=== PATIENT | male | born 1960 | race Caucasian/White ===

== ENCOUNTER 2016-10-27 02:21 | Inpatient (IN) | payer OTHER ==
[~2016-10-27] VITALS: Ht 172.7 cm; Wt 90.7 kg
[2016-10-27] MEDS ORDERED: DILAUDID2 M1 PO (08:26)
[2016-10-27] MEDS ORDERED: ASPIRIN EC325 M2 PO (08:26)
[2016-10-27] MEDS ORDERED: PRILOSEC OTC20 M1 PO (08:26)
[2016-10-27] MEDS ORDERED: MIRALAX17 G1 PO (08:26)
[2016-10-27] MEDS ORDERED: MS CONTIN30 M1 PO (08:26)
[2016-10-27] MEDS ORDERED: COLACE100 M1 PO (08:26)
--- NOTE | 2016-10-27 08:35 | Patient Discharge Instructions ---
Discharge Instructions General Discharge Information You were seen/treated for: Left hip pain related to osteoarthritis You had these procedures: Left total hip replacement Watch for these problems: Increasing pain desipite the use of pain medication. Increasing redness, warmth, swelling. Drainage of any type from incision. Inability to bear weight on left leg. Persistent nausea and vomitting. Fever greater than 101.5 degrees. Do not soak the wound: Yes No bath, but you may shower: Yes Other wound care: Keep wound clean and dry. No ointments of any type on or near incsion at any time. No exceptions. Dressing will be changed by nursing on the second day following your surgery. Daily dry dressing changes are recommended thereafter. Special Instructions: Anticoagulation: You are taking aspirin 325 twice daily to help you prevent the development of a blood clot. Please take this as directed. For protection of your stomach, be sure to take this with food. Prilosec has been given to you to further help protect your stomach, please take as directed. Constipation: Pain medications can be very constipating. Be sure to take colace and miralax as directed daily. These medications are available over the counter if needed. You may discontinue these medications if you develop loose stool or diarrhea. If you are unable to move your bowels for several days, or if at any time you are unable to pass gas, please contact your dr. Diet Continue normal diet: Yes Recommended Diet: Regular Additional DIET Information: Advance as tolerated Activity Full Activity/No Limits: No Activity Self Limited: Yes Pounds, do NOT lift more than: 10 Activity Limited to: Weight bear as tolerated Acute Coronary Syndrome Inclusion Criteria At GA or during hospital stay patient has or had the following: ACS DIAGNOSIS No Discharge Core Measures Meds if any: Prescribed or Continued at Discharge Meds if any: NOT Prescribed or Continued at Discharge Congestive Heart Failure Inclusion Criteria At DC or during hospital stay patient has or had the following: CHF DIAGNOSIS No Discharge Core Measures Meds if any: Prescribed or Continued at Discharge Meds if any: NOT Prescribed or Continued at Discharge Cerebrovascular accident Inclusion Criteria At DC or during hospital stay patient has or had the following: CVA/TIA Diagnosis No Discharge Core Measures Meds if any: Prescribed or Continued at Discharge Meds if any: NOT Prescribed or Continued at Discharge Venous thromboembolism Inclusion Criteria VTE Diagnosis No VTE Type NONE VTE Confirmed by (Test) NONE Discharge Core Measures - Per Current guidelines, there needs to be overlap - treatment for the first 5 days of Warfarin therapy. - If discharged on Warfarin prior to 5 days of - overlap therapy, the patient will need to be - assessed for post discharge needs including - *Post discharge parental anticoagulation - *Warfarin and/or parental anticoagulation education - *Follow up date to check INR post discharge At least 5 days overlap therapy as Inpatient No Meds if any: Prescribed or Continued at Discharge Note: Overlap Therapy is Warfarin and Anticoagulant Meds if any: NOT Prescribed or Continued at Discharge
--- NOTE | 2016-10-27 08:36 | Admission Core Measures ---
Admission Meds I reviewed the following Meds: Current Medications Sig/Dany Start time Last Medication Dose Stop Time Status Admin Acetaminophen 975 MG ONCE 10/27 NR (Tylenol) 10/27 2358 Cefazolin Sodium 2,000 MG ONCE 10/27 NR (Kefzol-Ancef Inj) 10/27 2358 Oxycodone HCl 10 MG ONCE 10/27 NR (Roxicodone) 10/27 2358 Acute Coronary Syndrome Inclusion Criteria ACS Diagnosis No Inpatient Core Measures LDL Reminder: If No, please order W/I first 24hr of stay Congestive Heart Failure Inclusion Criteria CHF Diagnosis No Cerebrovascular accident Inclusion Criteria CVA/TIA Diagnosis No Inpatient Core Measures Bedside Swallow Eval Reminder: If BSE failed, place ST order Antithrombotic Reminder: Order Antithrombotic Medication by end of day 2 Antithrombotic Reminder: Document Reason Antithrombotic Not ordered by end of day 2 AFIB/Flutter Reminder: If Present, add to problem list AFIB/Flutter Reminder: Order Anticoag Medication for pts with AFIB/Flutter Atherosclerosis Reminder: If Present, add to problem list LDL Reminder: If No, please order W/I first 24hr of stay PT Order Reminder: If No, please order Venous thromboembolism Inpatient Core Measures VTE Risk Factors: Age > 40, Surgery No [facility] VTE prophylaxis d/t No contraindications No VTE Pharm Prophylaxis d/t No contraindications Inclusion Criteria - Per Current guidelines, there needs to be overlap - treatment for the first 5 days of Warfarin therapy. - Parenteral Anticoagulation (IV or SC) needs to be - given along with Warfarin therapy. VTE Diagnosis No VTE Type NONE VTE Confirmed by (Test) NONE Problem List As ranked by this Provider includes Assessment & Plan 1. Unilateral primary osteoarthritis, left hip HOME MEDS Home Med List Aspirin (Ecotrin*) 325 MG TABLET.DR 1 TAB PO BID ANTICOAGULATION Docusate Sodium (Colace) 100 MG CAPSULE 1 CAP PO BID CONSITPATION Hydromorphone HCl (Dilaudid) 2 MG TABLET 1-2 TAB PO Q4-6 PRN PAIN Morphine Sulfate (Ms Contin) 30 MG TABLET.ER 1 TAB PO BID PAIN Omeprazole Magnesium (Prilosec Otc) 20 MG TABLET.DR 1 TAB PO DAILY GI PROTECTION Polyethylene Glycol 3350 (Miralax) 17 GRAM POWD.PACK 1 PAC PO DAILY CONSTIPATION
--- NOTE | 2016-10-27 08:40 | Surgical Discharge Summary ---
Visit Information Visit Dates Admission Date: 10/27/16 Discharge Date: 10/27/16 History of Present Illness Chief Complaint: Left hip pain related to unilateral primary osteoarthritis, left hip Surgical History Pertinent Surgical History: non-contributory Review of Systems: See H&P Hospital Course Course Attending Physician: CECILLE RAHMAN MD Primary Care Physician: WM MARISCAL MD Hospital Course: Ben was admitted to the hospital on 10/27/2016 and underwent and elective left total hip replacement. He tolerated the procedure well and was transferred to a general surgical floor. There, his vital signs remained stable and within normal limits, and his neurovascular status remained intact. His diet was advanced and tolerated and he was able to void spontaneously. His pain was controlled with the use of po pain medications and he was evaluated and treated by physical therapy. He was deemed appropriate for discharge on the same day as surgery. Complications: None Allergies: Coded Allergies: No Known Allergies (10/21/16) Disposition Summary Disposition Principal Diagnosis: Left hip unilateral primary osteoarthritis Additional Diagnosis: None Discharge Disposition: home health services Discharge Instructions General Discharge Information Code Status: Full Code Patient's Diet: Regular, advance as tolerated Patient's Activity: WBAT Follow-Up Instructions/Appts: Follow up with Dr. Rahman in 6 weeks from date of surgery Medications at Discharge Discharge Medications: Start taking the following new medications: Aspirin (Ecotrin*) 325 MG TABLET.DR 1 Tablet ORAL TWICE DAILY Qty = 60 No Refills Docusate Sodium (Colace) 100 MG CAPSULE 1 Capsule ORAL TWICE DAILY Qty = 14 No Refills Instructions: DISCONTINUE USE IF YOU DEVELOP LOOSE STOOL OR DIARRHEA Polyethylene Glycol 3350 (Miralax) 17 GRAM POWD.PACK 1 Packet ORAL DAILY Qty = 7 No Refills Instructions: dissolve in water, DISCONTINUE USE IF YOU DEVELOP LOOSE STOOL OR DIARRHEA Morphine Sulfate (Ms Contin) 30 MG TABLET.ER 1 Tablet ORAL TWICE DAILY Qty = 6 No Refills Hydromorphone HCl (Dilaudid) 2 MG TABLET 1-2 Tablet ORAL EVERY 4-6 HOURS as needed for PAIN Qty = 36 No Refills Omeprazole Magnesium (Prilosec Otc) 20 MG TABLET.DR 1 Tablet ORAL DAILY Qty = 30 No Refills Copies To: WM MARISCAL MD
--- NOTE | 2016-10-27 11:05 | RADIOLOGY REPORT ---
EXAMINATION: XR HIP, LEFT CLINICAL INFORMATION: Left hip replacement. COMPARISON: None TECHNIQUE: AP and cross table lateral view of the left hip. FINDINGS: There is a total left hip prosthesis in alignment. No evidence of prosthetic loosening. The soft tissues are normal. IMPRESSION: Total left hip prosthesis in alignment. No visible loosening or bone fractures seen.
[2016-10-27 11:15] VITALS: BP 126/80
--- NOTE | 2016-10-27 11:15 | NUR ---
RECEIVED FROM PACU: A 56 YEAR OLD MALE S/P LEFT THR. AMBULATED OFF PACU STRETCHER WITH PT. SETTLED INTO CHAIR. ALERT ORIENTED X3. VSS. NO COMPLAINTS OF PAIN. REVIEWED POC. CALL TIJERINA IN REACH. SEE NURSING ASSESSMENT FLOWSHEETS FOR FURTHER DOCUMENTATION.
[2016-10-27 13:15] VITALS: BP 124/66
--- NOTE | 2016-10-27 14:14 | PN- Orthopedic ---
Subjective Subjective: Reports pain controlled. Out of bed with PT, ambulating well. No dizziness. No shortness of breath. No chest pains. Voided 600 mls post-op. Tolerating diet. No nausea. Anticipates discharge to home when his can pick him up around 4 pm. Objective Vital Signs and I&Os Vital Signs Date Time Temp Pulse Resp B/P B/P Pulse O2 O2 Flow FiO2 Mean Ox Delivery Rate 10/27 1315 97.5 74 18 124/66 96 Room Air 10/27 1115 97.5 68 18 126/80 97 Room Air Intake & Output 10/27 1600 10/27 0800 10/27 0000 10/26 1600 10/26 0800 10/26 0000 Intake Total Output Total 600 Balance -600 Output, Urine 600 Patient 200 lb Weight Weight Reported by Patient Measurement Method Physical Exam: General - alert & oriented x 3. comfortable. no acute distress. Lungs - clear bilaterally. no w/r/r. Cardiac - s1s2. reg. Abdomen - soft. nontender. Extremities - warm bilaterally. no c/c/e. left hip dressing c/d/i. no hematoma. calves soft and nontender b/l. nvi. Current Medications: Current Medications Sig/Dany Start time Last Medication Dose Route Stop Time Status Admin Acetaminophen 1,000 MG Q6P PRN 10/27 1130 AC IV 10/28 1124 Acetaminophen 0 .STK-MED ONE 10/27 0720 DC PO Acetaminophen 975 MG ONCE 10/27 0000 DC PO 10/27 2359 Aspirin 325 MG BID 10/27 1000 AC 10/27 PO 1325 Cefazolin Sodium 2 GM IQ8 10/27 1600 AC N/A 1 UNIT IV 10/28 0029 Cefazolin Sodium 2,000 MG ONCE 10/27 0000 DC IV 10/27 2359 Dextrose/Sodium 1,000 ML .[id number] 10/27 1130 AC 10/27 Chloride IV 1115 Docusate Sodium 100 MG BID 10/27 1000 AC 10/27 PO 1325 Hydromorphone HCl 2 MG Q4P PRN 10/27 1130 AC 10/27 PO 1327 Hydromorphone HCl 4 MG Q4P PRN 10/27 1130 AC PO Ketorolac 15 MG Q8P PRN 10/27 1130 AC Tromethamine IV 10/30 1124 Morphine Sulfate 2 MG Q2P PRN 10/27 1130 AC IV Omeprazole 40 MG DAILY AC 10/28 0700 AC PO Ondansetron HCl 4 MG Q6P PRN 10/27 1130 AC IV Oxycodone HCl 0 .STK-MED ONE 10/27 0720 DC PO Oxycodone HCl 10 MG ONCE 10/27 0000 DC PO 10/27 2359 Polyethylene Glycol 17 GM DAILY 10/27 1000 AC 10/27 PO 1326 Promethazine HCl 12.5 MG Q6P PRN 10/27 1130 AC IV 11/03 0829 Assessment/Plan Assessment/Plan This 56 year old male is POD#0 s/p left total hip replacement pain controlled tolerating diet cleared for home by PT voided 600 mls already asa bid rocco-operative ancef d/c home pending pick-up by will d/w Core Measures/Miscellaneous Venous Thromboembolism VTE Risk Factors: Age > 40, Surgery VTE Contraindications: No Contraindications VTE Diagnosis: No VTE Type: NONE VTE Confirmed by (Test): NONE Beta José Is Beta José a Home Med? No Antibiotics Is Patient on Antibiotics? Yes If Yes: prophylaxis
--- NOTE | 2016-10-27 16:25 | Operative Report ---
Operative/Inv Procedure Report Surgery Date: 10/27/16 Name of Procedure: Left total hip replacement Pre-Operative Diagnosis: Primary left hip DJD Post-Operative Diagnosis: Same Estimated Blood Loss: 300 Surgeon/Embroidery Patternmaker: LACEY JORGENSEN,CECILLE Ambrocio Anesthesia: block Operative/Procedure Note Note: Description of Procedure: The patient was taken to the operating room and positively identified. After induction of spinal anesthesia and administration of appropriate pre-operative antibiotics, the patient was positioned supine on the operating room table and all bony prominences were well padded. After performing a surgical timeout, the left lower extremity was prepped and draped in the usual sterile fashion. A direct anterior approach was made to the left hip. The incision was carried sharply through superficial soft tissues to the level of the fascia. Meticulous hemostasis was maintained with Bovie electocautery. The fascia over the tensor fascia irina muscle was opened sharply and the interval between the TFL and the sartorius was entered bluntly taking care to stay lateral to the lateral femoral cutaneous nerve. Retractors were placed around the femoral neck and the pericapsular fat was identified. The ascending branches of the lateral femoral circumflex vessels were identified and carefully coagulated. The pericapsular fat and anterior capsule were then resected. A napkin ring osteotomy was performed and the femoral head was removed without difficulty. Attention was then turned to the acetabulum. After appropriate placement of retractors, the acetabulum was exposed. Soft tissue was cleaned from the acetabular margin and notch. Overhanging osteophytes were removed and the teardrop was exposed. The acetabulum was then sequentially reamed to accept a 56 mm Kimberly Tritanium hemispherical solid back shell. This was impacted into place in the appropriate position and fitted with a 32 mm Trident X3 zero degree polyethylene insert. Attention was then turned to the femur. After performing the appropriate ligament releases, the proximal femur was exposed. It was then sequentially broached to accept a size 6 Kimberly accolade 2 stem. This was trialed for leg length and stability. The trial component was removed and the final component was impacted into place. The trunnion was carefully cleaned and fit with a 32 mm, -4 Biolox delta ceramic femoral head. The hip was reduced and put through a full range of motion and found to be stable. The articular space was then irrigated with sterile saline. The periarticular soft tissues were infilitrated with Marcaine. The fascial layer was closed with interrupted #1 vicryl suture and the skin was re-approximated with interrupted 2 -0 vicryl. The skin was closed with a running 3-0 V-Lock suture. Steri-strips and a sterile dressing were applied. The patient was awakened and taken to the recovery room in satisfactory condition.
== END 2016-10-27 16:05 | disposition home health service (06) | DRG 470 ==
LOC: SDA 02:21 → ENRESERV 09:56 → 2NA 11:14 → ENPENDDIS 14:33 → 2NA 16:05
PROVIDERS: ADMIT Orthopaedic Surgery
PROC: 0SRB04A Replacement of Left Hip Joint with Ceramic on Polyethylene Synthetic Substitute, Uncemented, Open Approach (ICD-10-PCS; principal; 2016-10-27)
DX: M16.12 Unilateral primary osteoarthritis, left hip (principal)
CPT/HCPCS: 2NASP; 73502-LT; 88304; 97110-GO; 97116-GO; 97161-GP; 97530-GO; J0131; J0690; J0735; J2550; J7042